=== PATIENT | female | born 1965 | race Caucasian/White ===

== ENCOUNTER 2017-07-29 20:46 | Emergency (ER) | payer OTHER ==
[~2017-07-29] VITALS: Ht 157.5 cm; Wt 73.9 kg
[2017-07-29 20:47] VITALS: BP 164/104
--- NOTE | 2017-07-29 20:47 | NUR ---
52/F [place] [employer] FOR PREB[employer]. REPORTS SHE IS 6 MONTHS , , LMP JAN 2017. DENIES ANY ABD PAIN/CRAMPING, VAGINAL BLEEDING. PMH: ADD
[2017-07-29 21:18] LABS: BARBITURATE, URINE NEG. ng/ml (NEG <=200); BENZODIAZEPINE, URINE NEG. ng/mL (NEG <=200); CANNABINOID, URINE NEG. ng/mL (NEG <=50); COCAINE, URINE NEG. ng/mL (NEG <=300); OPIATE, URINE NEG. ng/mL (NEG <=2000); PHENCYCLIDINE SCREEN,URINE NEG. ng/mL (NEG <=25)
--- NOTE | 2017-07-29 21:33 | NUR ---
PATIENT BIB [facility] [employer]. PATIENT EXAMINED BY DR. HUBBARD. PATIENT MEDICALLY CLEARED AND RELEASED IN CUSTODY IN STABLE CONDITION. ORIGINAL PRE-BOOK FORM GIVEN TO OFFICER [place].Patient discharged with v/s stable. Written and verbal after care instructions given and explained. Patient verbalized understanding. Ambulatory with steady gait. All questions addressed prior to discharge. Advised to follow up with PMD.
[2017-07-29 21:36] VITALS: BP 104/72
== END 2017-07-29 21:33 ==
LOC: MED 20:46
DX: F15.10 Other stimulant abuse, uncomplicated (principal); R00.0 Tachycardia, unspecified; F90.9 Attention-deficit hyperactivity disorder, unspecified type
CPT/HCPCS: 80305; 81025; 99283